=== PATIENT | male | born 1960 | race Caucasian/White ===

== ENCOUNTER 2023-04-08 15:20 | Emergency (ER) | payer MEDICAID ==
[~2023-04-08] VITALS: Ht 172.7 cm; Wt 81.2 kg
[2023-04-08 15:22] VITALS: BP 209/119
--- NOTE | 2023-04-08 15:26 | NUR ---
PT AMBULATED TO BED 11
[2023-04-08] MEDS ORDERED: hydrALAZINE 20 MG/ML VIAL IM ONE ×2 (15:50→20:05)
[2023-04-08 16:15] LABS: ANION GAP 11.4 (8-16); CARBON DIOXIDE 28.8 mmol/L (21-32); CREATININE 1.1 mg/dL (0.6-1.3); POTASSIUM 3.2 mmol/L (3.5-5.1)
[2023-04-08 16:41] LABS: BASOPHILS # (AUTO) 0.1 K/uL (0.00-0.22); BASOPHILS % (AUTO) 1.5 % (0.0-2.0); EOSINOPHILS # (AUTO) 0.1 K/uL (0-0.4); EOSINOPHILS % (AUTO) 1.1 % (0.0-4.0); HEMATOCRIT 42.9 % (36-52); HEMOGLOBIN 14.8 g/dL (12.0-18.0); LYMPHOCYTES # (AUTO) 1.6 K/uL (2.0-11.5); LYMPHOCYTES % (AUTO) 30.7 % (20.5-51.1); MEAN CORPUSCULAR HEMOGLOBIN 30 pg (27-31); MEAN CORPUSCULAR HGB CONC 34 g/dL (33-37); MEAN CORPUSCULAR VOLUME 85.9 fL (80-94); MONOCYTES # (AUTO) 0.4 K/uL (0.8-1.0); MONOCYTES % (AUTO) 8.1 % (1.7-9.3); NEUTROPHILS # (AUTO) 3.1 K/uL (1.8-7.7); NEUTROPHILS % (AUTO) 58.6 % (42.2-75.2); PLATELET COUNT (AUTO) 178 K/uL (140-450); WHITE BLOOD COUNT (AUTO) 5.4 K/uL (4.8-10.8)
[2023-04-08] MEDS ORDERED: AMLO5TAB PO (19:14)
--- NOTE | 2023-04-08 20:01 | NUR ---
PT IS PREPARING FOR DISCHARGE. BP REMAINS HIGH. DR MENDOZA AWARE, ORDERS RECEIVED
[2023-04-08 20:12] VITALS: BP 209/111
--- NOTE | 2023-04-08 20:12 | NUR ---
Patient discharged with v/s stable. Written and verbal after care instructions given and explained. Patient alert, oriented and verbalized understanding of instructions. Ambulatory with steady gait. All questions addressed prior to discharge. ID band removed. Patient advised to follow up with PMD. Rx of NORVASC given. Patient educated on indication of medication including possible reaction and side effects. Opportunity to ask questions provided and answered.
== END 2023-04-08 20:12 | disposition home or self-care (01) ==
LOC: MED 15:20
DX: I16.1 Hypertensive emergency (principal); I10 Essential (primary) hypertension; F17.210 Nicotine dependence, cigarettes, uncomplicated; Z71.6 Tobacco abuse counseling; Z98.890 Other specified postprocedural states; Z79.1 Long term (current) use of non-steroidal anti-inflammatories (NSAID)
CPT/HCPCS: 36415; 80048; 83880; 84484; 85025; 93005; 96372; 96374; 99285; J0360